=== PATIENT | male | born 1945 | race Caucasian/White ===

== ENCOUNTER 2019-03-02 08:49 | Inpatient (IN) ==
--- NOTE | 2019-02-14 16:09 | PAT Medication Instructions ---
Medication Instructions Date of Service February 14, 2019 Home Medications aspirin 81 mg PO HS atorvastatin [Lipitor] 40 mg PO QPM clopidogrel [Plavix] 75 mg PO QPM levothyroxine [Synthroid] 88 mcg PO QAM metformin 500 mg PO BID pantoprazole [Protonix] 20 mg PO QAM terazosin 20 mg PO HS verapamil 240 mg PO QPM ASK your prescriber and surgeon aspirin 81 mg PO HS clopidogrel [Plavix] 75 mg PO QPM DO NOT take the morning of surgery metformin 500 mg PO BID Take morning of surgery With a small sip of water, OTHERWISE NOTHING TO EAT OR DRINK AFTER MIDNIGHT: levothyroxine [Synthroid] 88 mcg PO QAM pantoprazole [Protonix] 20 mg PO QAM Take evening before surgery atorvastatin [Lipitor] 40 mg PO QPM metformin 500 mg PO BID terazosin 20 mg PO HS verapamil 240 mg PO QPM Other Notes If you have any questions please call us at [phone] or [phone] or [phone] or [phone]
--- NOTE | 2019-02-15 09:10 | Anesthesiology Consultation ---
Date of Service February 15, 2019 Assessment & Plan (1) Encounter for pre-operative examination: - Awaiting review preop testing (labs, EKG, CXR). - Awaiting most recent cardiology office visit note (Dr. Alvaraod) and most recent cardiac testing (i.e. stress/ECHO). - Check BSG AM DOS - PCP: 02/04/19: "acceptable candidate for proposed surgery. Harry revised cardiac risk index is estimated to be ~0.4-0.5% of cardiac complications." - Medication instructions: patient to continue ASA perioperatively per surgeon; plavix to hold 7 days prior to surgery per surgeon/prescriber Chart Review Chart Review: Patient seen in Pre Admission Testing Teaching & Discussion Pre-Anesthesia Teaching/Discussion Notes: Instructed NPO after midnight before surgery,except medications with 15 cc of water. Medication instructions provided according to the PAT guidelines. History Surgery Operation Date: 12/13/18 10:25 Proposed Procedures p L4-L5 Decompression and Fusion - Filemon Butterfield DO Operation Date: 03/02/19 10:25 Proposed Procedures p L4-L5 Decompression and Fusion, Spinal Cord Monitoring - Filemon Butterfield DO Height/Weight Height: 5 ft 8 in Weight: 102.1 kg Allergies Allergy/AdvReac Type Severity Reaction Status Date / Time No Known Allergies Allergy Verified 02/03/19 14:19 Medications Home Medications Medication Instructions Recorded Confirmed Last Taken aspirin 81 mg PO HS 02/03/19 02/03/19 Unknown atorvastatin [Lipitor] 40 mg PO QPM 02/03/19 02/03/19 Unknown clopidogrel [Plavix] 75 mg PO QPM 02/03/19 02/03/19 Unknown levothyroxine [Synthroid] 88 mcg PO QAM 02/03/19 02/03/19 Unknown metformin 500 mg PO BID 02/03/19 02/03/19 Unknown pantoprazole [Protonix] 20 mg PO QAM 02/03/19 02/03/19 Unknown terazosin 20 mg PO HS 02/03/19 02/03/19 Unknown verapamil 240 mg PO QPM 02/03/19 02/03/19 Unknown Past Medical History Medical History Borderline diabetes NIDDM CAD (coronary artery disease) MARY JANE to mid to distal LAD Diverticular disease GERD (gastroesophageal reflux disease) controlled History of kidney stones History of melanoma in situ Hyperlipidemia Hypertension Hypothyroidism Liver cyst Obesity Sleep apnea CPAP Spinal stenosis Exercise / Class Metabolic Activity II 4-5 Yardwork/Stairs/Walk up hill Past Surgical History Surgical History History of cardiac cath stent x 1 (2017) History of cataract surgery History of colonoscopy with polypectomy History of cystoscopy w/ stone extraction History of esophagogastroduodenoscopy (EGD) History of melanoma excision History of tonsillectomy Past Anesthesia History No Hx of Anesthesia Complications and No Family Hx of Anesthesia Complications History of PONV No Hx of PONV and No Hx of Motion Sickness Social History Smoking Status: Former smoker Do You Dip or Chew Tobacco: No Smoking End Date: Quit 1971 Hx Alcohol Use: Yes Alcohol type: beer alcohol intake frequency: a few times a week Hx Substance Use: No substance use type: does not use Review of Systems Reflux controlled. Patient denies chest pain, shortness of breath, dyspnea on exertion, cough, wheezing, palpitations. Physical Exam Vital Signs VITALS BP 150/80 P 53 TEMP 97.7 SP02 98%RA RESP 18 PHYSICAL Full neck and c-spine range of motion. Full TMJ range of motion. TMD 3 finger breaths Mallampati Score 3 Dentition: intact Lungs: clear throughout to auscultation Cardiac: regular rate and rhythm, no murmurs noted Spine: normal Carotid arteries: negative bruit Extremities: no edema
--- NOTE | 2019-02-15 09:55 | XRay Report ---
XR chest Pre-admission PA/Lat HISTORY: Preop. COMPARISON: Chest 09/03/2013. FINDINGS: The lungs are clear. Cardiac silhouette is normal in size. No pleural effusions. No pneumot horax. IMPRESSION: No acute process. Electronically signed by: Yunior Cohen M.D. 02/15/2019 9:54 AM
[2019-02-15 10:19] LABS: Basophils # (auto) 0.01 K/uL (0-0.2); Basophils % (auto) 0.2 %; Eosinophils % (auto) 2.1 %; Hematocrit (blood only) 38.6 % (42-52); Hemoglobin 12.8 g/dL (14.0-18.0); Immature Granulocytes # (auto) 0.01 K/uL (0.00-0.02); Immature Granulocytes % (auto) 0.2 %; Lymphocytes # (auto) 1.19 K/uL (1.2-3.4); Lymphocytes % (auto) 24.4 %; Mean Corpuscular Hemoglobin 29.5 pg (25-34); Mean Corpuscular Hgb Conc 33.2 g/dL (32-36); Mean Corpuscular Volume 88.9 fL (80-100); Mean Platelet Volume 10.4 fL (7.4-10.4); Monocytes # (auto) 0.35 K/uL (0.11-0.59); Monocytes % (auto) 7.2 %; Neutrophils # (auto) 3.21 K/uL (1.4-6.5); Neutrophils % (auto) 65.9 %; Platelet Count 139 K/uL (130-400); RDW Coefficient of Variation 13.8 % (11.5-14.5); RDW Standard Deviation 45.4 fL (36.4-46.3); Red Blood Count 4.34 M/uL (4.7-6.1); White Blood Count 4.87 K/uL (4.8-10.8)
[2019-02-15 10:22] LABS: Appearance Urine Clear (Clear); Bilirubin Urine Negative (Negative); Blood Urine Negative (Negative); Color Urine Dark Yellow; Glucose Urine UA Negative (Negative); Ketones Urine Trace (Negative); Leukocyte Esterase Urine Negative (Negative); Nitrite Urine Negative (Negative); Protein Urine Negative (Negative); Specific Gravity Urine 1.028 (1.000-1.030); Urobilinogen Urine Negative (Negative)
[2019-02-15 10:26] LABS: BUN Creatinine Ratio 21.6 (10-20); Calcium 9.2 mg/dl (8.5-10.1); Creatinine Clr Calc Pharmacy 65.8 ml/min; Potassium 4.5 mmol/L (3.5-5.1)
[2019-02-15 10:33] LABS: INR 1.1 (0.9-1.1); Partial Thromboplastin Ratio 0.9; Prothrombin Time 10.8 Seconds (9.0-12.0)
[2019-02-15 10:40] LABS: Estimated Average Glucose 148 mg/dl; Hemoglobin A1C 6.8 % (4.5-5.6)
[~2019-03-02 08:49] MED LIST: ACETAMINOPHEN 500 MG TAB PO SCH; CEFAZOLIN 2000MG 2,000 MG/15 ML SYR IV SCH; CeleBREX 200 MG CAP PO SCH; GABAPENTIN 300 MG CAP PO SCH
[2019-03-02] MEDS ORDERED: fentaNYL citrate 100 MCG/2 ML VIAL ONE ×2 (09:10)
[2019-03-02] MEDS: LR 15ML/HR IV SCH ×2 (09:19→13:12)
--- NOTE | 2019-03-02 09:32 | History & Physical Bridge Note ---
Date of Service March 02, 2019 History & Physical Bridge Note I have examined the patient, reviewed the History & Physical and in the interval since the performance of the History & Physical I have noted the following changes of clinical significance: no changes noted
--- NOTE | 2019-03-02 09:32 | History & Physical Report ---
Date of Service March 02, 2019 Assessment & Plan (1) Spinal stenosis, lumbar region with neurogenic claudication: L4-L5 decompression and fusion possible L5-S1 Present on Admission?: Yes History of Present Illness Chief Complaint: Back and leg pain Primary Care Provider: Shana Dorsey MD This is a 73-year-old male who presents with chronic persistent back and leg pain. After failing extensive course of nonoperative care is here for surgical intervention. Allergies Allergy/AdvReac Type Severity Reaction Status Date / Time No Known Allergies Allergy Verified 03/02/19 09:16 Home Medications Home Medications Medication Instructions Recorded Confirmed Type aspirin 81 mg PO HS 02/03/19 03/02/19 History atorvastatin [Lipitor] 40 mg PO QPM 02/03/19 03/02/19 History clopidogrel [Plavix] 75 mg PO QPM 02/03/19 03/02/19 History levothyroxine [Synthroid] 88 mcg PO QAM 02/03/19 03/02/19 History metformin 500 mg PO BID 02/03/19 03/02/19 History pantoprazole [Protonix] 20 mg PO QAM 02/03/19 03/02/19 History terazosin 20 mg PO HS 02/03/19 03/02/19 History verapamil 240 mg PO QPM 02/03/19 03/02/19 History Past Med/Surg History Social History Preferred Language: British Communication Ability: Effective 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 Results & Data Vital Signs (Past 12 Hours) Vital Signs Temp Pulse Resp BP Pulse Ox 03/02/19 09:22 36.4 C L 65 20 172/74 H 96
[2019-03-02] MEDS ORDERED: HYDROmorphone INJ 2 MG/ML SYR/VIAL IV PRN (09:51)
[2019-03-02] MEDS ORDERED: PROMETHAZINE HCL 12.5 MG in SODIUM CHLORIDE 0.9% 50 ML IV PRN ×2 (09:51→13:50)
[2019-03-02] MEDS ORDERED: ATROPINE SULFATE 0.1 MG/ML 10ML SYR IV PRN (09:51)
[2019-03-02] MEDS ORDERED: fentaNYL citrate 100 MCG/2 ML VIAL IV PRN (09:51)
[2019-03-02] MEDS ORDERED: METOCLOPRAMIDE HCL INJ 5 MG/ML 2 ML VIAL IV PRN ×2 (09:51→13:50)
[2019-03-02] MEDS ORDERED: ONDANSETRON INJ 2 MG/ML 2 ML VIAL IV PRN ×2 (09:51→13:50)
[2019-03-02] MEDS ORDERED: KETOROLAC TROMETHAMINE 15 MG/ML VIAL IV PRN (09:51)
[2019-03-02] MEDS ORDERED: ePHEDrine sulfate 50 MG/ML AMP IV PRN (09:51)
[2019-03-02] MEDS ORDERED: DEXAMETHASONE SOD INJ 4 MG/ML VIAL IV PRN (09:51)
[2019-03-02] MEDS ORDERED: BUPIVACAINE/EPINEPHRINE 0.5% MPF 1:200,000 30 ML VIAL ONE (09:52)
[2019-03-02] MEDS ORDERED: BACITRACIN INJ 50,000 UNIT VIAL ONE (09:52)
[2019-03-02] MEDS ORDERED: BUPIVACAINE 0.5 % 5 MG/1 ML MPF 30ML VIAL ONE (10:01)
[2019-03-02] MEDS ORDERED: HYDROmorphone INJ 2 MG/ML SYR/VIAL ONE (10:43)
[2019-03-02] MEDS ORDERED: FLOSEAL HEMOSTATIC MATRIX 10ML TOP ONE (10:49)
[2019-03-02] MEDS ORDERED: PROPOFOL IV EMULSION 10 MG/ML 20 ML VIAL IV ONE (10:53)
[2019-03-02] MEDS ORDERED: DEXAMETHASONE SOD INJ 4 MG/ML VIAL ONE (10:53)
[2019-03-02] MEDS ORDERED: ePHEDrine sulfate 50 MG/ML SYR ONE (10:53)
[2019-03-02] MEDS ORDERED: ROCURONIUM BROMIDE 10 MG/ML 5 ML VIAL ONE (10:53)
[2019-03-02] MEDS ORDERED: LIDOCAINE HCL 2% 2 ML VIAL/AMP(20MG/ML) INFIL ONE (10:53)
[2019-03-02] MEDS ORDERED: GLYCOPYRROLATE 0.2 MG/ML VIAL ONE (10:53)
[2019-03-02] MEDS ORDERED: NEOSTIGMINE METHYLSULFATE 1 MG/ML 10ML VIAL ONE (10:53)
[2019-03-02] MEDS ORDERED: ONDANSETRON INJ 2 MG/ML 2 ML VIAL ONE (10:53)
--- NOTE | 2019-03-02 12:06 | Operative Report ---
Post Operative Report Pre & Post Diagnosis Operation Date: 12/13/18 10:25 <No data on this case meets the specified criteria> Operation Date: 03/02/19 10:25 Pre-Op Diagnosis: Spinal stenosis, lumbar region with neurogenic claudication Post-Op Diagnosis: Spinal stenosis, lumbar region with neurogenic claudication I identified the patient and participated in the time-out.: Yes Procedure Operation Date: 12/13/18 10:25 <No data on this case meets the specified criteria> Operation Date: 03/02/19 10:25 Actual Procedures #1 lumbar decompression with bilateral medial facetectomies foraminotomies L3-4 L4-5 per #2 posterior spinal fusion L4-5 per #3 placement posterior instrumentation L4-5 per #4 interbody fusion L4-5 per #5 placement of peek cage 14 x 26 mm at L4-5 per #6 placement of local autograft in the posterior lateral gutters. #7 placement infuse collagen sponge combined with master graft in the posterior lateral gutters and ostial amp in the interbody space. Surgeon Filemon Butterfield, DO Chemistry Technician Micki Agee Estimated Blood Loss 200 Findings See Below Patient is 5 foot 8 inches tall weighing over 101 kg with a BMI in excess of 34. The patient's body habitus did add significant technical difficulty throughout the procedure requiring her deepest retractors and longer instruments in order to perform the procedure. This added at least 50% increase in operative time. Specimens None Indications This is a 73-year-old male who presents with above-mentioned diagnosis after failing extensive course of nonoperative care is here for surgical intervention. Description of Procedure Patient was met with identified and informed consent obtained. Patient was then taken to the operative suite underwent intubation placed in the prone position the Chacorta table on top of the Davon frame. All bony prominences well-padded eyes inspected to ensure no external pressure placed upon the peer at this point the lumbar spine was prepped and draped in normal sterile fashion. Sharp dissection with the assistance of Bovie cautery was performed down to and exposing the lamina and transverse processes of L4 and L5 bilaterally. From a caudal to cephalad fashion complete laminectomy of L4 partial laminectomy of L3 was performed including bilateral medial facetectomies and foraminotomies addressing severe stenosis. Pedicle screw was then placed in L4 and L5 bilaterally with assistance of fluoroscopy and the probably size alexander placed. By way of a trans-foraminal approach and left complete discectomy was performed endplates curetted to subcortical bleeding bone and a 14 x 26 m peek cage filled with ostium bone graft tapped in position. The rods were then locked into final position bilaterally. The transverse processes of L for an L5 bur to subcortical being bone. Infuse collagen sponge master graft and local autograft placed in the posterior lateral gutters. 15 round KRISTIAN drain inserted. Incision was then closed with 1 Vicryl in the fascia 2-0 Vicryl substantially and 4-0 Monocryl for final skin closure. Steri-Strip sterile dressings placed. Patient will continue PACU in stable condition. Please note Micki Agee present throughout the entire procedure involved in patient positioning complex portions of the surgery and final skin closure. Lastly spinal cord monitoring was utilized that the procedure no changes noted. I attest to the content of the Intraoperative Record and any orders documented therein. Any exceptions are noted below.
--- NOTE | 2019-03-02 12:42 | Fluoroscopy Report ---
INTRAOPERATIVE RADIOGRAPHS CLINICAL HISTORY: L4-L5 spinal fusion. Fluoroscopy time: 15 seconds. FINDINGS: 2 spot fluoroscopic views of the lower lumbar spine are presented. There has been discectom y at L4-L5 with laminectomy and posterior fusion at this level. Interpedicular screws are in place. T he orthopedic hardware appears intact. IMPRESSION: Intraoperative images from L4-L5 spinal fusion as above. Electronically signed by: Salvador Beal M.D. 03/02/2019 12:40 PM
--- NOTE | 2019-03-02 12:55 | Anesthesiology Progress Note ---
Date of Service March 02, 2019 Anesthesia Post Procedure Vital Signs Vital Signs: Temp Pulse Pulse Resp BP Pulse Ox 03/02/19 12:50 56 L 12 141/75 H 97 03/02/19 12:40 57 L 15 135/73 98 03/02/19 12:30 69 18 138/63 99 03/02/19 12:23 36.0 C L 67 18 139/77 97 03/02/19 09:22 36.4 C L 65 20 172/74 H 96 Pain Intensity Back: Pain Intensity: 2 Transfer of Care Handoff Completed per policy Notes Mental Status: alert / awake / arousable and participated in evaluation Patient Amnestic to Procedure: Yes Nausea / Vomiting: adequately controlled Pain: adequately controlled Airway Patency, RR, SpO2: stable & adequate BP & HR: stable & adequate Hydration State: stable & adequate Anesthetic Complications: no major complications apparent
[2019-03-02] MEDS ORDERED: FAMOTIDINE 20 MG TAB PO PRN (13:50)
[2019-03-02] MEDS ORDERED: LORazepam 0.5 MG/1 ML VIAL IV PRN (13:50)
[2019-03-02] MEDS ORDERED: ALUMINUM/MAGNESIUM SUSP 30 ML UDC PO PRN (13:50)
[2019-03-02] MEDS ORDERED: HYDROmorphone INJ 0.5 MG/0.5 ML SYR IV PRN (13:50)
[2019-03-02] MEDS ORDERED: bisacodyL 10 MG SUPP PR PRN (13:50)
[2019-03-02] MEDS ORDERED: SOD PHOSPHATE/SOD BIPHOSPHATE ENEMA 132 ML BTL PR PRN (13:50)
[2019-03-02] MEDS ORDERED: DO NOT ADMINISTER PNEUMOCOCCAL VACCINE PRN (13:50)
[2019-03-02] MEDS ORDERED: LORazepam 0.5 MG TAB PO PRN (13:50)
[2019-03-02] MEDS ORDERED: HYDROmorphone INJ 1 MG/ML SYRINGE IV PRN (13:50)
[2019-03-02] MEDS ORDERED: OXYCODONE HCL IR 5 MG TAB (IMMEDIATE RELEASE) PO PRN (13:50)
[2019-03-02] MEDS ORDERED: DO NOT ADMINISTER FLU VACCINE PRN (13:50)
[2019-03-02] MEDS ORDERED: ACETAMINOPHEN 500 MG TAB PO PRN (13:50)
[2019-03-02] MEDS ORDERED: ACETAMINOPHEN 1,000 MG/100 ML VIAL IV PRN (13:50)
[2019-03-02] MEDS ORDERED: NALOXONE HCL 0.4 MG/1 ML VIAL/CARP IV PRN (13:50)
[2019-03-02] MEDS ORDERED: SODIUM CHLORIDE 0.9% 1000ML 1,000 ML IV SCH (13:50)
[2019-03-02] MEDS ORDERED: ONDANSETRON 4 MG TAB PO PRN (13:50)
[2019-03-02] MEDS ORDERED: MAGNESIUM HYDROXIDE SUSP 30 ML UDC PO PRN (13:50)
--- NOTE | 2019-03-02 15:15 | Hospitalist Consultation ---
Date of Consultation March 02, 2019 Assessment & Plan (1) Hypertension: Continue home medication: Aspirin 81 milligrams daily, verapamil 240 p.o. every afternoon, Keep blood pressure below 140/90 as recommended by [facility] for patients with diabetes mellitus. Present on Admission?: Yes (2) Coronary artery disease: As above Present on Admission?: Yes (3) Hypothyroidism: TSH pending, continue levothyroxine 88 MCG's p.o. every morning. Present on Admission?: Yes (4) Hyperlipidemia: Fasting lipid panel pending, continue atorvastatin 40 mg p.o. every afternoon. Present on Admission?: Yes (5) Benign prostatic hyperplasia: Stable, continue terazosin 20 mg p.o. nightly. Present on Admission?: Yes (6) Diabetes mellitus type 2 in nonobese: They are to hold metformin while patient is in the hospital due to possible side effects while hospitalized. Prefer sliding scale insulin and Accu-Cheks before meals and at bedtime. Glycemic control to be managed per pharmacy. Hemoglobin A1c February 15- 6.8 Present on Admission?: Yes (7) GERD (gastroesophageal reflux disease): Patient creatinine is 1.14, and GFR 63. Patient at home is on both metformin and pantoprazole scheduled which may over time impede with his renal function. Discussed with patient. Consider switching pantoprazole to famotidine 20 mg p.o. daily and or as needed for GERD. Present on Admission?: Yes History of Present Illness Reason for Consultation: Chronic diseases medical management Attending Physician: Filemon Butterfield, DO History of Present Illness Patient is a 73 years old male with past medical history of an NSTEMI status post cardiac catheterization with angioplasty and stenting of the mid to distal LAD done at [facility] in 2017, coronary artery disease, hypertension, diabetes, hypothyroidism, benign prostatic hypertrophy and hyperlipidemia who is status post day# 1 a lumbar decompression with bilateral medial facetectomies foraminotomies L3-L4, L4-L5, posterior spinal fusion L4-L5, placement of posterior instrumentation L4-L5, interbody fusion L4- L5, placement of peek cage 14 x 26 mm at L4-L5, placement of local autograft in the posterior lateral gutters, placement of infuse collagen sponge combined with master graft in the posterior lateral gutters and ostial amp in the interbody space. Medicine is consulted for management of patient chronic medical issues. Patient tolerated procedure well. P.o. intake is good.. Patient did not is afebrile. Patient denies fever, chills, headache, chest pain, shortness of breath, frequency, urgency, dysuria, hematuria, syncope, near syncope. Patient reports his bowel movements are regular. Patient denies any pain at this time. Allergies Allergy/AdvReac Type Severity Reaction Status Date / Time No Known Allergies Allergy Verified 03/02/19 09:16 Home Medications Home Medications Medication Instructions Recorded Confirmed Type aspirin 81 mg PO HS 02/03/19 03/02/19 History atorvastatin [Lipitor] 40 mg PO QPM 02/03/19 03/02/19 History clopidogrel [Plavix] 75 mg PO QPM 02/03/19 03/02/19 History levothyroxine [Synthroid] 88 mcg PO QAM 02/03/19 03/02/19 History metformin 500 mg PO BID 02/03/19 03/02/19 History pantoprazole [Protonix] 20 mg PO QAM 02/03/19 03/02/19 History terazosin 20 mg PO HS 02/03/19 03/02/19 History verapamil 240 mg PO QPM 02/03/19 03/02/19 History Patient History Medical History Diverticular disease GERD (gastroesophageal reflux disease) controlled History of kidney stones History of melanoma in situ Hyperlipidemia Hypertension Hypothyroidism Liver cyst Sleep apnea CPAP Spinal stenosis Borderline diabetes NIDDM CAD (coronary artery disease) MARY JANE to mid to distal LAD Obesity Surgical History History of cardiac cath stent x 1 (2016) History of cataract surgery History of colonoscopy with polypectomy History of cystoscopy w/ stone extraction History of esophagogastroduodenoscopy (EGD) History of melanoma excision History of tonsillectomy Social History Preferred Language: Cameroonian Communication Ability: Effective Milk Inspector Required: No Beliefs That Will Affect Care: None marital status: Current Living Situation: Spouse Other Information That Helps Us Care for You: No Feels Safe at Home: Yes Safety Concerns: Feels Safe At This Time Smoking Status: Former smoker Do You Dip or Chew Tobacco: No ; Smoking End Date: Quit 1971 ; Second Hand Exposure: No ; Tobacco Cessation Education Reque sted by Patient: No Hx Alcohol Use: Yes Alcohol type: beer Hx Substance Use: No Review of Systems Review of Systems: All systems reviewed & are unremarkable except as noted in HPI & below Physical Exam Constitutional: WD/WN, vitals as above well developed Eyes: PERRL, conjunctivae normal, anicteric sclerae ENMT: external ear and nose normal, oropharynx normal Neck: trachea midline, no thyromegaly Respiratory: normal respiratory effort, lungs clear to auscultation Cardiovascular: Heart Sounds: normal S1 and normal S2 Palpation: + palpable S3 Vessels: dorsalis pedis pulses present Gastrointestinal (Abdomen): normal bowel sounds, soft, nontender, no hepatosplenomegaly Musculoskeletal: no cyanosis or clubbing, extremities motor strength 5/5 Surgical procedure as described through L3-L5. Dressing clean dry and intact Skin: no rashes, warm and dry Neurologic: patellar DTR's 2+ bilat, sensation intact Genitourinary: no testicular masses, no penis abnormality Lymphatic: no cervical or axillary lymphadenopathy Results & Data Vital Signs (Past 12 Hours) Vital Signs Temp Pulse Pulse Resp BP Pulse Ox 03/02/19 14:43 36.3 C L 58 L 16 156/81 H 97 03/02/19 14:12 36.3 C L 50 L 16 156/76 H 98 03/02/19 13:40 36.3 C L 59 L 16 144/76 H 99 03/02/19 13:15 51 L 14 148/72 H 98 03/02/19 13:00 36.7 C 50 L 16 147/75 H 98 03/02/19 12:50 56 L 12 141/75 H 97 03/02/19 12:40 57 L 15 135/73 98 03/02/19 12:30 69 18 138/63 99 03/02/19 12:23 36.0 C L 67 18 139/77 97 03/02/19 09:22 36.4 C L 65 20 172/74 H 96 PG Care Time/CCT Total # of Minutes Spent Total Time Spent with Patient: Total time spent is greater than 50% in coordination of care (as documented) at patient's floor/unit and/or counseling patient:
[2019-03-02] MEDS ORDERED: GLUCOSE 10 TABS/TUBE PO PRN (16:08)
[2019-03-02] MEDS ORDERED: GLUCOSE 40% GEL 15 GM TUBE PO PRN (16:08)
[2019-03-02] MEDS ORDERED: CARBOHYDRATES FOR HYPOGLYCEMIA PO PRN (16:08)
[2019-03-02] MEDS ORDERED: DEXTROSE 50% 50 ML SYRINGE IV PRN (16:08)
[2019-03-02] MEDS ORDERED: GLUCAGON FOR INJ 1 MG VIAL SQ PRN (16:08)
[2019-03-02] MEDS ORDERED: PHARMACY GLYCEMIC MGMT CONSULT PRN (16:14)
[2019-03-02] MEDS: INSULIN ASPART 100 UNITS/ML 3 ML PEN SC SCH ×2 (18:14→21:42)
[2019-03-02] MEDS: CEFAZOLIN 2000MG 2,000 MG/15 ML SYR IV SCH (18:16)
[2019-03-02] MEDS ORDERED: LANTUS PER UNIT CHARGE SQ ONE (18:30)
--- NOTE | 2019-03-02 18:43 | Pharmacy Report ---
Pharmacy Glycemic Short Note 2 - Date of Service March 02, 2019 - Glycemic Short BSG Results (Last 24 hours): 03/02/19 03/02/19 03/02/19 09:19 12:33 17:07 POC Glucose 135 H 156 H 230 H OUTPATIENT ANTIDIABETIC REGIMEN: * Metformin 500 mg Po BID * A1c = 6.8% 02/15/19 ASSESSMENT: * Earle is a 73 yr old T2DM male s/p lumbar decompression and fusion * Pt is maintained on metformin as an outpatient * Will hold oral agents for admission and utilize SQ basal bolus insulin regimen which is the recommended regimen for inpatient glycemic control. * Will initiate weight based insulin dosing for insulin serina patient and titrate based on BSG trends. * Relatively conservative insulin doses have been selected since patient did not receive elaine-operative steroids. PLAN FOR INPATIENT GLYCEMIC CONTROL: * Hold outpatient oral diabetes medications * Basal insulin * Lantus 17 units SQ x 1 dose * Bolus insulin * NovoLog per scale ACHS or Q6hrs while NPO * Goal Range: Low 110 mg/dL - High 140 mg/dL * Correction Factor: 25 mg/dL/unit * Nutritional / Prandial insulin per carb ratio of 1 unit per 8 grams CHO consumed PLAN FOR DISCHARGE: * A1c = 6.8% on 02/15/19 * Recommend continuation of metformin on discharge (if renal function allows) * B12 supplementation may be necessary with exterminator termite metformin use * Titrate metformin dose to a goal of 2000 mg/day, in divided doses. Dosage increase should be made in increments of 500 mg weekly. * Support Patient Self-Management Healthy Lifestyle (diet, exercise, and smoking cessation) Disease self-management (SMBG) Prevention of complications (BP, Lipid goals, Immunizations) Consider outpatient Diabetes Self-Management Education & Support
[2019-03-02] MEDS: ATORVASTATIN 40 MG TAB PO SCH (20:51)
[2019-03-02] MEDS: TERAZOSIN HCL 5 MG CAP PO SCH (20:52)
[2019-03-02] MEDS: ASPIRIN 81 MG ECTAB PO SCH (20:52)
[2019-03-02] MEDS: DOCUSATE SODIUM/SENNA 50/8.6MG TAB PO SCH (20:52)
[2019-03-02] MEDS: VERAPAMIL HCL 240 MG TABCR PO SCH (20:52)
[2019-03-03] MEDS ORDERED: INSULIN ASPART 100 UNITS/ML 3 ML PEN SC SCH
[2019-03-03] MEDS: CEFAZOLIN 2000MG 2,000 MG/15 ML SYR IV SCH (02:44)
[2019-03-03 05:30] LABS: Basophils # (auto) 0.01 K/uL (0-0.2); Basophils % (auto) 0.1 %; Hematocrit (blood only) 33.4 % (42-52); Hemoglobin 11.2 g/dL (14.0-18.0); Immature Granulocytes # (auto) 0.02 K/uL (0.00-0.02); Immature Granulocytes % (auto) 0.2 %; Lymphocytes # (auto) 0.77 K/uL (1.2-3.4); Mean Corpuscular Hgb Conc 33.5 g/dL (32-36); Mean Corpuscular Volume 89.5 fL (80-100); Mean Platelet Volume 10.8 fL (7.4-10.4); Monocytes # (auto) 0.68 K/uL (0.11-0.59); Monocytes % (auto) 6.1 %; Neutrophils # (auto) 9.58 K/uL (1.4-6.5); Neutrophils % (auto) 86.6 %; Platelet Count 136 K/uL (130-400); RDW Coefficient of Variation 13.5 % (11.5-14.5); RDW Standard Deviation 44.7 fL (36.4-46.3); Red Blood Count 3.73 M/uL (4.7-6.1); White Blood Count 11.06 K/uL (4.8-10.8)
[2019-03-03] MEDS: LEVOTHYROXINE SODIUM 88 MCG TABLET PO SCH (05:47)
[2019-03-03] MEDS: POLYETHYLENE (MIRALAX) 17 GM PACK PO SCH ×4 (05:47→23:40)
[2019-03-03 06:03] LABS: Calcium 8.6 mg/dl (8.5-10.1); Creatinine Clr Calc Pharmacy 64.6 ml/min; Est GFR (African American) 71.5; Est GFR (Non-African American) 61.7; Potassium 4.4 mmol/L (3.5-5.1)
[2019-03-03 06:14] LABS: Thyroid Stimulating Hormone 0.403 uIu/ml (0.300-4.500)
--- NOTE | 2019-03-03 08:09 | Anesthesiology Progress Note ---
Date of Service March 03, 2019 Anesthesia Post Procedure Vital Signs Vital Signs: Temp Pulse Pulse Pulse Resp BP BP 03/03/19 07:18 36.5 C 54 L 16 137/72 03/03/19 03:01 36.3 C L 49 L 16 157/68 H 03/02/19 23:37 36.5 C 53 L 16 146/76 H 03/02/19 21:49 47 L 16 154/75 H 03/02/19 19:20 36.5 C 57 L 16 168/77 H 03/02/19 17:00 36.3 C L 49 L 16 167/76 H 03/02/19 16:27 162/75 H 03/02/19 15:58 36.4 C L 51 L 16 170/81 H 03/02/19 14:43 36.3 C L 58 L 16 156/81 H 03/02/19 14:12 36.3 C L 50 L 16 156/76 H 03/02/19 13:40 36.3 C L 59 L 16 144/76 H 03/02/19 13:15 51 L 14 148/72 H 03/02/19 13:00 36.7 C 50 L 16 147/75 H 03/02/19 12:50 56 L 12 141/75 H 03/02/19 12:40 57 L 15 135/73 03/02/19 12:30 69 18 138/63 03/02/19 12:23 36.0 C L 67 18 139/77 03/02/19 09:22 36.4 C L 65 20 172/74 H Pulse Ox 03/03/19 07:18 96 03/03/19 03:01 96 03/02/19 23:37 96 03/02/19 21:49 97 03/02/19 19:20 97 03/02/19 17:00 95 03/02/19 16:27 97 03/02/19 15:58 98 03/02/19 14:43 97 03/02/19 14:12 98 03/02/19 13:40 99 03/02/19 13:15 98 03/02/19 13:00 98 03/02/19 12:50 97 03/02/19 12:40 98 03/02/19 12:30 99 03/02/19 12:23 97 03/02/19 09:22 96 Pain Intensity Back: Pain Intensity: 3 Notes Mental Status: alert / awake / arousable and participated in evaluation Patient Amnestic to Procedure: Yes Nausea / Vomiting: adequately controlled Pain: adequately controlled Airway Patency, RR, SpO2: stable & adequate BP & HR: stable & adequate Hydration State: stable & adequate Anesthetic Complications: no major complications apparent
[2019-03-03] MEDS: INSULIN ASPART 100 UNITS/ML 3 ML PEN SC SCH ×4 (08:47→21:19)
[2019-03-03] MEDS ORDERED: PANTOprazole 40 MG TAB PO SCH (09:00)
--- NOTE | 2019-03-03 09:55 | Orthopedic Progress Note ---
Date of Service March 03, 2019 Assessment & Plan (1) Spinal stenosis, lumbar region with neurogenic claudication: At this time we will maintain activity as tolerated. Monitor his KRISTIAN output. Hopefully discharge home by Thursday. Present on Admission?: Yes Subjective Back pain controlled leg symptoms markedly improved. Physical Exam Physical Exam: Patient is ambulating halls. Is excellent posture. Good strength testing. Results & Data Vital Signs (Past 12 Hours) Vital Signs Temp Pulse Pulse Resp BP BP Pulse Ox 03/03/19 07:18 36.5 C 54 L 16 137/72 96 03/03/19 03:01 36.3 C L 49 L 16 157/68 H 96 03/02/19 23:37 36.5 C 53 L 16 146/76 H 96
[2019-03-03] MEDS: TRAMADOL HCL 50 MG TABLET PO PRN (13:07)
--- NOTE | 2019-03-03 14:18 | Family Medicine Progress Note ---
Date of Service March 03, 2019 Assessment & Plan (1) Hypertension: Continue home medication: Aspirin 81 milligrams daily, verapamil 240 p.o. every afternoon, Keep blood pressure below 140/90 as recommended by [facility] for patients with diabetes mellitus. (2) Coronary artery disease: Continue current medications as ordered. Patient's vitals are stable. (3) Hypothyroidism: TSH is within normal limits. Continue levothyroxine 0.88 mg every day as ordered. (4) Hyperlipidemia: Continue atorvastatin 40 mg p.o. every afternoon. (5) Benign prostatic hyperplasia: Stable, continue terazosin 20 mg p.o. nightly. (6) Diabetes mellitus type 2 in nonobese: Glycemic control to be managed per pharmacy. Consideration to restarting metformin in this patient with normal renal function and elevated glucose. Hemoglobin A1c February 15- 6.8 (7) GERD (gastroesophageal reflux disease): Patient creatinine is 1.14, and GFR 63. Patient at home is on both metformin and pantoprazole scheduled which may over time impede with his renal function. Discussed with patient. Consider switching pantoprazole to famotidine 20 mg p.o. daily and or as needed for GERD. Subjective Patient sitting currently in chair. He has no complaints. Denies any back pain. He also noted significant radiculopathy which is since resolved. Denies any chest pain, shortness breath, dyspnea on exertion, or any other issues at this time. Review of Systems Review of Systems: All systems reviewed & are unremarkable except as noted in HPI & below Physical Exam Physical Exam: GENERAL: Non-toxic in appearance. INTEGUMENTARY: Warm, dry, and [place]. HEAD: Normocephalic. EYES: without scleral icterus or trauma. ENT/OROPHARYNX: clear and moist. LYMPHADENOPATHY/NECK: Is supple without lymphadenopathy or meningismus. RESPIRATORY: Lungs clear and equal. CARDIOVASCULAR: Regular rate and rhythm. GI/ABDOMEN: Soft and nontender. No organomegaly or pulsatile mass. No rebound or guarding. Normal bowel sounds. EXTREMITIES: Warm and well perfused. BACK: No CVA tenderness. NEUROLOGICAL: Intact without focal deficits. PSYCHIATRIC: normal affect. MUSCULOSKELETAL: Normally developed with good muscle tone. Results & Data Vital Signs (Past 12 Hours) Vital Signs Temp Pulse Pulse Resp BP BP Pulse Ox 03/03/19 12:08 36.7 C 59 L 16 123/65 96 03/03/19 07:18 36.5 C 54 L 16 137/72 96 03/03/19 03:01 36.3 C L 49 L 16 157/68 H 96 PG Care Time/CCT Total # of Minutes Spent Total Time Spent with Patient: Total time spent is greater than 50% in coordination of care (as documented) at patient's floor/unit and/or counseling patient:
--- NOTE | 2019-03-03 14:54 | Pharmacy Report ---
Glycemic Control Consultation - Date of Service March 03, 2019 - Scope Scope: Glycemic Pharmacist consulted by Dr Foster on 03/03/19 for glycemic control and to write orders per [facility] inpatient glycemic control protocol - Objective Weight: 101.9 kg Accuchecks BSG (last 24hrs): 03/02/19 03/02/19 03/02/19 17:07 21:35 23:38 Glucose POC Glucose 230 H 239 H 199 H 03/03/19 03/03/19 03/03/19 05:00 08:20 12:12 Glucose 184 H POC Glucose 158 H 187 H Laboratory Data (last 24hrs): 03/03/19 05:00 Potassium 4.4 Carbon Dioxide 26 Anion Gap 4.0 Creatinine 1.16 Est Cr Clr Drug Dosing 64.6 HbA1c: Hemoglobin A1c 6.8 % (4.5-5.6) H 02/15/19 09:07 - Recent Pertinent Medications Outpatient Anti-diabetic Regimen: * Metformin 500 mg PO BID * A1c = 6.8 % on 02/15/19 Risk Factors for Insulin Resistance: * Steroids: Decadron IV 12 mg in OR on 03/02/19 * Recent Surgery: Lumbar fusion yesterday. * Diet: T2DM - Assessment & Plan Assessment & Plan: ASSESSMENT: * 73 y/o M admitted for PLAN FOR INPATIENT GLYCEMIC CONTROL: * Starting IV insulin infusion per [] (moderate/severe) stress protocol * Goal Range [] - [] mg/dl * In the critical care setting, continuous IV insulin infusion has been shown to be the best method for achieving glycemic targets. * Holding outpatient oral diabetes medications * Basal insulin * Lantus [] units SQ BID * Bolus insulin * NovoLog per scale ACHS or Q6hrs while NPO * Goal Range: Low [] mg/dL - High [] mg/dL * Correction Factor: [] mg/dL/unit * Nutritional / Prandial insulin per carb ratio of 1 unit per [] grams CHO consumed OR PLAN FOR INPATIENT GLYCEMIC CONTROL: * Continuing / Increasing / decreasing Lantus/NPH to [] units SQ BID * Continuing / changing correction factor to [] mg/dl/unit * Continuing / changing carb ratio to 1 unit per [] grams CHO consumed * Continuing / changing goal range to Low [] mg/dL - High [] mg/dL * Please note that the plan above was derived based on current level of insulin resistance and hospital stress. These recommendations are appropriate for inpatient admission only. Plan of care upon discharge will need to be reassessed to avoid potential outpatient hypo/hyperglycemia. Thank you.
--- NOTE | 2019-03-03 15:02 | Pharmacy Report ---
Pharmacy Glycemic Short Note 2 - Date of Service March 03, 2019 - Glycemic Short BSG Results (Last 24 hours): 03/02/19 03/02/19 03/02/19 17:07 21:35 23:38 Glucose POC Glucose 230 H 239 H 199 H 03/03/19 03/03/19 03/03/19 05:00 08:20 12:12 Glucose 184 H POC Glucose 158 H 187 H OUTPATIENT ANTIDIABETIC REGIMEN: * Metformin 500 mg Po BID * A1c = 6.8% 02/15/19 ASSESSMENT: * Patient received total of 35 units of insulin yesterday; 17 units of which were basal Lantus and the rest bolus Novolog. * Fasting BSG was above goal and lunch BSG trended up. * Novolog Carb ratio was tightened to 6 with dinner today. * Lantus ordered based on a scale at dinner today based on weight and between a stress of 1 and 2. * Target BSG less than 180 to facilitate wound/infection healing in post op pat ient. PLAN FOR INPATIENT GLYCEMIC CONTROL: * Hold outpatient oral diabetes medications * Basal insulin- Lantus at HS based on scale: - for BSG less than 180, give 9 units - for BSG 180 or greater, give 15 units. * Bolus insulin: tightened CR * NovoLog per scale ACHS or Q6hrs while NPO * Goal Range: Low 110 mg/dL - High 140 mg/dL * Correction Factor: 25 mg/dL/unit * Nutritional / Prandial insulin per carb ratio of 1 unit per 6 grams CHO consumed PLAN FOR DISCHARGE: * A1c = 6.8% on 02/15/19 * Recommend continuation of metformin on discharge (if renal function allows) * B12 supplementation may be necessary with watermaster metformin use * Titrate metformin dose to a goal of 2000 mg/day, in divided doses. Dosage increase should be made in increments of 500 mg weekly. * Support Patient Self-Management Healthy Lifestyle (diet, exercise, and smoking cessation) Disease self-management (SMBG) Prevention of complications (BP, Lipid goals, Immunizations) Consider outpatient Diabetes Self-Management Education & Support
[2019-03-03] MEDS ORDERED: LANTUS PER UNIT CHARGE SQ SCH (17:00)
[2019-03-03] MEDS: TERAZOSIN HCL 5 MG CAP PO SCH (20:46)
[2019-03-03] MEDS: ATORVASTATIN 40 MG TAB PO SCH (20:46)
[2019-03-03] MEDS: VERAPAMIL HCL 240 MG TABCR PO SCH (20:46)
[2019-03-03] MEDS: ASPIRIN 81 MG ECTAB PO SCH (20:47)
[2019-03-03] MEDS: DOCUSATE SODIUM/SENNA 50/8.6MG TAB PO SCH (20:47)
[2019-03-04] MEDS: POLYETHYLENE (MIRALAX) 17 GM PACK PO SCH ×2 (05:51→12:56)
[2019-03-04] MEDS: LEVOTHYROXINE SODIUM 88 MCG TABLET PO SCH (05:51)
[2019-03-04] MEDS: TRAMADOL HCL 50 MG TABLET PO PRN ×2 (05:54→14:19)
[2019-03-04] MEDS: INSULIN ASPART 100 UNITS/ML 3 ML PEN SC SCH ×2 (07:50→12:54)
[2019-03-04] MEDS: METFORMIN HCL ER 500 MG TABCR PO SCH ×2 (09:32→17:12)
--- NOTE | 2019-03-04 13:29 | Hospitalist Progress Note ---
Date of Service March 04, 2019 Assessment & Plan (1) Hypertension: Continue home medication: Aspirin 81 milligrams daily, verapamil 240 p.o. every afternoon, Keep blood pressure below 140/90 as recommended by [facility] for patients with diabetes mellitus. (2) Coronary artery disease: Patient is restarted aspirin. He is asking when his Plavix can be restarted, he had held this 7 days prior with surgery. If okay with primary service, will start this as well with the first dose tomorrow morning. (3) Hypothyroidism: TSH is within normal limits. Continue levothyroxine 0.88 mg every day as ordered. (4) Hyperlipidemia: Continue atorvastatin 40 mg p.o. every afternoon. (5) Benign prostatic hyperplasia: Stable, continue terazosin 20 mg p.o. nightly. (6) Diabetes mellitus type 2 in nonobese: Glycemic control to be managed per pharmacy. Consideration to restarting metformin in this patient with normal renal function and elevated glucose. Hemoglobin A1c February 8- 6.8 (7) GERD (gastroesophageal reflux disease): Patient creatinine is 1.14, and GFR 63. Patient at home is on both metformin and pantoprazole scheduled which may over time impede with his renal function. Discussed with patient. Consider switching pantoprazole to f amotidine 20 mg p.o. daily and or as needed for GERD. Patient seems to be stable from medical perspective. I will sign off. Please call with any questions or concerns. Subjective Patient sitting currently in chair. Has no complaints, continues to do well. No pain in the back and denies any radiculopathy. Also denies any chest pain, shortness of breath, bleeding, or other issues. Review of Systems Review of Systems: All systems reviewed & are unremarkable except as noted in HPI & below Physical Exam Physical Exam: GENERAL: Non-toxic in appearance. INTEGUMENTARY: Warm, dry, and [place]. HEAD: Normocephalic. EYES: without scleral icterus or trauma. ENT/OROPHARYNX: clear and moist. LYMPHADENOPATHY/NECK: Is supple without lymphadenopathy or meningismus. RESPIRATORY: Lungs clear and equal. CARDIOVASCULAR: Regular rate and rhythm. GI/ABDOMEN: Soft and nontender. No organomegaly or pulsatile mass. No rebound or guarding. Normal bowel sounds. EXTREMITIES: Warm and well perfused. BACK: No CVA tenderness. KRISTIAN drain with sanguinous fluid, no evidence of bleeding. NEUROLOGICAL: Intact without focal deficits. PSYCHIATRIC: normal affect. MUSCULOSKELETAL: Normally developed with good muscle tone. Results & Data Vital Signs (Past 12 Hours) Vital Signs Temp Pulse Resp BP Pulse Ox 03/04/19 06:57 36.6 C 54 L 16 125/74 97 PG Care Time/CCT Total # of Minutes Spent Total Time Spent with Patient: Total time spent is greater than 50% in coordination of care (as documented) at patient's floor/unit and/or counseling patient:
--- NOTE | 2019-03-04 14:16 | Discharge Summary ---
Date of Service March 04, 2019 Admission HPI Per Admitting Provider This is a 73-year-old male who presents with chronic persistent back and leg pain. After failing extensive course of nonoperative care is here for surgical intervention. Principal Diagnosis Lumbar spinal stenosis with neurogenic claudication Discharge Data Allergies Allergy/AdvReac Type Severity Reaction Status Date / Time No Known Allergies Allergy Verified 03/02/19 09:16 Consultations 03/02/19 13:50 Consult Case Management - Discharge Planning Routine 03/02/19 14:00 Consult Hospitalist Routine Procedures Performed Operation Date: 12/13/18 10:25 <No data on this case meets the specified criteria> Operation Date: 03/02/19 10:25 Actual Procedures p L4-L5 Decompression and Fusion, Spinal Cord Monitoring(Not Applicable) - Filemon Butterfield DO Ordered Studies 03/02/19 10:25 FL fluoroscopy <1hr Routine FL lumbar spine 2-3V Routine Hospital Course (1) Spinal stenosis, lumbar region with neurogenic claudication: Patient underwent lumbar decompression fusion tolerated this well was taken to orthopedic for possibly. Postop day 1 he was up and ambulating progressed the postop day 2. KRISTIAN drain decreasing probably. Pain well controlled. Neurologically intact. Subsequent discharge home. Discharge orders instructions were on the chart for further review. Total Time Total Time Spent Total Time Spent (In Minutes): 20 minutes Discharge Plan Discharge Items Patient Disposition: Home - Self-Care Reason For Visit: LUMBAR INTERVERTEBRAL DISC DISORDERS W/RADICULOPAT Discharge Diagnosis: ACTIVITY RECOMMENDATIONS: SELF CARE INSTRUCTIONS AFTER THORACIC/LUMBAR FUSIONS 1. You may walk to your tolerance. It is good exercise for your legs and back. Expect some back and intermittent leg aches and pains. 2. You may perform "counter-top" level activities (make a sandwich, julien with a project, etc.). 3. No bending or lifting of more than 10 pounds or back twisting of any nature (roll like a log when turning in bed). 4. You may ride in a car for 20-30 minutes at a time. No driving until after your first visit with your doctor. 5. Frequent changes of position and restricting sitting to 30 minutes at a time will help limit the amount of back spasms and stiffness you may experience. 6. You may discontinue the use of ambulatory aids (cane, crutches, etc.) once your strength and confidence allow. 7. You may building attendant the shower and let water strike your incision when you arrive home at least once daily. Do not take a tub bath, sit in a hot tub or go into a swimming pool until after your first recheck in the office. SPECIAL CARE INSTRUCTIONS: VERY IMPORTANT TO READ AND REVIEW A. Your surgical incision has been closed with a cosmetic suture under the skin that will dissolve in about 6 weeks. In 14 days, you can use a pair of clean scissors and cut the suture that is left outside of the skin at the ends of your incision. 1. The small skin tapes can be removed 7 days after surgery if they have not fallen off by that point. 2. You may keep the wound open to air as much as possible to promote healing after post-op day number 5 unless told otherwise by your doctor. 3. If you think the wound looks like it is becoming infected (redness or worsening drainage) and/or you are experiencing fever, chill or worsening back pain and muscle spasms, contact the office so that we may evaluate you as soon as possible. B. Complications are uncommon, but please contact us if you have any signs or symptoms of: 1. wound infection (fever higher than 102.5 degrees F, redness, separation of wound, drainage, or increasing pain from the incision) 2. blood clots in legs (pain, swelling, redness and warmth in legs) 3. urinary tract infection (fever higher than 102.5 degrees F, burning upon urination or increased frequency of urination) 4. nerve problems (inability to walk on your toes or heels, numbness, loss of bowel or bladder control) 5. any other symptoms that concern you C. Please call the office at if you have any concerns or questions about your operation or recovery. D. No smoking! Smoking drastically decreases the chance of a solid fusion. E. Do not take any anti-inflammatory medications (Indocin, Advil, Motrin, Aspirin, Naprosyn, etc.) as these may inhibit the chance of a solid fusion. Tylenol is okay to take for pain. MANAGING PAIN AFTER SPINAL SURGERY 1. Narcotic medication is intended for short-term use and will be provided for surgical pain. Surgical pain usually lasts for a period of 4-6 weeks. Narcotic medication includes Percocet, Vicodin, Darvocet, Tylenol #3 or Lortab. 2. Longer-term pain is more appropriately treated with non-narcotic medication such as Tylenol ES. 3. Muscle spasm is not appropriately treated with narcotics. Muscle relaxers such as Soma, Flexeril or Skelaxin can be used along with Tylenol ES. 4. Remember that we all live with some "aches and pains". This is not unusual or uncommon after an injury or as we get older. a. Back pain is expected and may include muscle spasms for 4 to 6 weeks after surgery. The pain should gradually improve. If the pain worsens for no apparent reason, please contact the office. b. Intermittent leg pain may also be experienced and should not be concerned about unless it worsens for no apparent reason. If so, please contact the office. 5. We will provide appropriate medication within the normal guidelines of their prescribed use. We will also be very cautious and aware of potential abuse and extended duration of patients' medication needs. a. Pain medications are for your comfort and to assist with sleep and rest so that the tissue can heal. They are not provided in order to return to normal activity and should not be used through the day. To do so or worsening pain at night can result from ongoing tissue damage and development of tolerance to the prescribed medicine. 6. Please allow 2-3 days to process refills. Prescriptions will not be mailed but must be picked up at the office. FOLLOW UP VISIT: Keep your scheduled follow-up appointment. Any questions, please call the office at . Activity: Per Instructions section Non-emergency contact: Primary Care Provider Call non-emergency contact if: you have any medication questions Follow-up/Referrals: Shana Dorsey MD [Primary Care Provider] - Diet: Regular Addtl Attending Provider Instructions: ACTIVITY RECOMMENDATIONS: SELF CARE INSTRUCTIONS AFTER THORACIC/LUMBAR FUSIONS 1. You may walk to your tolerance. It is good exercise for your legs and back. Expect some back and intermittent leg aches and pains. 2. You may perform "counter-top" level activities (make a sandwich, julien with a project, etc.). 3. No bending or lifting of more than 10 pounds or back twisting of any nature (roll like a log when turning in bed). 4. You may ride in a car for 20-30 minutes at a time. No driving until after your first visit with your doctor. 5. Frequent changes of position and restricting sitting to 30 minutes at a time will help limit the amount of back spasms and stiffness you may experience. 6. You may discontinue the use of ambulatory aids (cane, crutches, etc.) once your strength and confidence allow. 7. You may building attendant the shower and let water strike your incision when you arrive home at least once daily. Do not take a tub bath, sit in a hot tub or go into a swimming pool until after your first recheck in the office. SPECIAL CARE INSTRUCTIONS: VERY IMPORTANT TO READ AND REVIEW A. Your surgical incision has been closed with a cosmetic suture under the skin that will dissolve in about 6 weeks. In 14 days, you can use a pair of clean scissors and cut the suture that is left outside of the skin at the ends of your incision. 1. The small skin tapes can be removed 7 days after surgery if they have not fallen off by that point. 2. You may keep the wound open to air as much as possible to promote healing after post-op day number 5 unless told otherwise by your doctor. 3. If you think the wound looks like it is becoming infected (redness or worsening drainage) and/or you are experiencing fever, chill or worsening back pain and muscle spasms, contact the office so that we may evaluate you as soon as possible. B. Complications are uncommon, but please contact us if you have any signs or symptoms of: 1. wound infection (fever higher than 102.5 degrees F, redness, separation of wound, drainage, or increasing pain from the incision) 2. blood clots in legs (pain, swelling, redness and warmth in legs) 3. urinary tract infection (fever higher than 102.5 degrees F, burning upon urination or increased frequency of urination) 4. nerve problems (inability to walk on your toes or heels, numbness, loss of bowel or bladder control) 5. any other symptoms that concern you C. Please call the office at if you have any concerns or questions about your operation or recovery. D. No smoking! Smoking drastically decreases the chance of a solid fusion. E. Do not take any anti-inflammatory medications (Indocin, Advil, Motrin, Aspirin, Naprosyn, etc.) as these may inhibit the chance of a solid fusion. Tylenol is okay to take for pain. MANAGING PAIN AFTER SPINAL SURGERY 1. Narcotic medication is intended for short-term use and will be provided for surgical pain. Surgical pain usually lasts for a period of 4-6 weeks. Narcotic medication includes Percocet, Vicodin, Darvocet, Tylenol #3 or Lortab. 2. Longer-term pain is more appropriately treated with non-narcotic medication such as Tylenol ES. 3. Muscle spasm is not appropriately treated with narcotics. Muscle relaxers such as Soma, Flexeril or Skelaxin can be used along with Tylenol ES. 4. Remember that we all live with some "aches and pains". This is not unusual or uncommon after an injury or as we get older. a. Back pain is expected and may include muscle spasms for 4 to 6 weeks after surgery. The pain should gradually improve. If the pain worsens for no apparent reason, please contact the office. b. Intermittent leg pain may also be experienced and should not be concerned about unless it worsens for no apparent reason. If so, please contact the office. 5. We will provide appropriate medication within the normal guidelines of their prescribed use. We will also be very cautious and aware of potential abuse and extended duration of patients' medication needs. a. Pain medications are for your comfort and to assist with sleep and rest so that the tissue can heal. They are not provided in order to return to normal activity and should not be used through the day. To do so or worsening pain at night can result from ongoing tissue damage and development of tolerance to the prescribed medicine. 6. Please allow 2-3 days to process refills. Prescriptions will not be mailed but must be picked up at the office. FOLLOW UP VISIT: Keep your scheduled follow-up appointment. Any questions, please call the office at . Pending Studies at Discharge: No Stand-Alone Forms: My [employer], Smoking Cessation Medications and DC Order Prescriptions: New oxycodone 5 mg tablet 5 mg PO Q6H PRN (Reason: pain, severe) Qty: 30 RF: 0 tramadol 50 mg tablet 50 mg PO Q6H PRN (Reason: pain, moderate) Qty: 30 RF: 0 Continued atorvastatin [Lipitor] 40 mg Tablet 40 mg PO QPM RF: 0 metformin 500 mg Tablet 500 mg PO BID RF: 0 clopidogrel [Plavix] 75 mg Tablet 75 mg PO QPM RF: 0 aspirin 81 mg Tablet,Delayed Release (Dr/Ec) 81 mg PO HS RF: 0 pantoprazole [Protonix] 20 mg Tablet,Delayed Release (Dr/Ec) 20 mg PO QAM RF: 0 levothyroxine [Synthroid] 88 mcg Tablet 88 mcg PO QAM RF: 0 verapamil 240 mg Tablet Extended Release 240 mg PO QPM RF: 0 terazosin 10 mg Capsule 20 mg PO HS RF: 0 Discharge Orders: Discharge Order (Routine); Ordered 03/04/19 Ordered By: Filemon Jones/Other Patient Handouts: A1C, Diabetes Senior Living Complications, Diabetes Healthy Meals, Diabetes Carbs, Diabetes Exercise Benefits, Diabetes Exercise Get Started, Diabetes Activity Tips Admission Data Admit Date/Time: 03/02/19 12:09 Attending Provider: Filemon Butterfield Admit Provider: Filemon Butterfield Primary Care Provider: Shana Dorsey Other Providers: Deniz Scott Jonathan R
--- NOTE | 2019-03-04 14:26 | Pharmacy Report ---
Pharmacy Glycemic Short Note 2 - Date of Service March 04, 2019 - Glycemic Short BSG Results (Last 24 hours): 03/03/19 03/03/19 03/04/19 17:05 20:44 06:54 POC Glucose 131 H 130 H 136 H 03/04/19 11:51 POC Glucose 117 H OUTPATIENT ANTIDIABETIC REGIMEN: * Metformin 500 mg Po BID * A1c = 6.8% 02/15/19 ASSESSMENT: 03/04: * Patient received total 36 units insulin yesterday; 9 units were basal Lantus and rest bolus. * Lantus discontinued today since Metformin home regimen was started this morning. * Also Novolog carb ratio was loosened to 10 with lunch then removed altogether starting dinner. Expect that patient should not require anymore Novolog with Metformin resumption. 03/03: * Patient received total of 35 units of insulin yesterday; 17 units of which were basal Lantus and the rest bolus Novolog. * Fasting BSG was above goal and lunch BSG trended up. * Novolog Carb ratio was tightened to 6 with dinner today. * Lantus ordered based on a scale at dinner today based on weight and between a stress of 1 and 2. * Target BSG less than 180 to facilitate wound/infection healing in post op patient. PLAN FOR INPATIENT GLYCEMIC CONTROL: * Resumed Metformin 500 mg BID this morning * Basal insulin- discontinued * Bolus insulin: loosened CR * NovoLog per scale ACHS or Q6hrs while NPO * Goal Range: Low 110 mg/dL - High 140 mg/dL * Correction Factor: 25 mg/dL/unit * Nutritional / Prandial insulin per carb ratio: none PLAN FOR DISCHARGE: * A1c = 6.8% on 02/15/19 * Recommend continuation of metformin on discharge (if renal function allows) * B12 supplementation may be necessary with half-way metformin use * Titrate metformin dose to a goal of 2000 mg/day, in divided doses. Dosage increase should be made in increments of 500 mg weekly. * Support Patient Self-Management Healthy Lifestyle (diet, exercise, and smoking cessation) Disease self-management (SMBG) Prevention of complications (BP, Lipid goals, Immunizations) Consider outpatient Diabetes Self-Management Education & Support
[2019-03-05] MEDS ORDERED: CLOPIDOGREL BISULFATE 75 MG TAB PO SCH (09:00)
== END 2019-03-04 18:03 | disposition home or self-care (01) | DRG 455 ==
LOC: ASU 08:49 → SUATTDRO 12:09 → 3E 12:09